=== PATIENT | female | born 1995 | race Caucasian/White ===

== ENCOUNTER 2016-09-24 21:28 | Inpatient (IN) | payer OTHER ==
--- NOTE | 2016-09-24 21:41 | HP ---
COWS - Scale Resting Pulse: 1= [place] 81-100 Sweatin=Flushed/Facial Moisture Restless Observation: 1= Difficult to Sit Still Pupil Size: 1= Pupils >than Normal Bone or Joint Aches: 2= Severe Diffuse Aches Runny Nose/ Eye Tearin= Runny Nose/Eyes GI Upset > 30mins: 2= Nausea/Diarrhea Tremor Observation: 2= Slight Tremor Visible Yawning Observation: 0= None Anxiety or Irritability: 2=Irritable/Anxious Goose Flesh Skin: 0=Smooth Skin COWS Score: 15 CIWA Score - CIWA Score Nausea/Vomitin Muscle Tremors: 3 Anxiety: 3 Agitation: 2 Paroxysmal Sweats: 3 Orientation: 0-Oriented Tacttile Disturbances: 2-Mild Itch/Numbness/Burn Auditory Disturbances: 2-Mild Harshness/Frighten Visual Disturbances: 2-Mild Sensitivity Headache: 1-Very Mild CIWA-Ar Total Score: 21 Admission ROS BHS - HPI Chief Complaint: DEPENDENT ON HEROIN, ETOH AND CRACK Allergies/Adverse Reactions: Allergies Allergy/AdvReac Type Severity Reaction Status Date / Time amoxicillin Allergy Unknown Verified 09/24/16 21:37 History of Present Illness: THE PT. IS REQUESTING ADMISSION TO THE DETOX UNIT AND CAME FOR H AND PE Exam Limitations: No Limitations - Ebola screening Have you traveled outside of the country in the last 21 days: No Have you had contact with anyone from an Ebola affected area: No Have you been sick,other than usual withdrawal symptoms: No Do you have a fever: No - Review of Systems Constitutional: See HPI, Malaise, Weakness EENT: reports: See HPI Respiratory: reports: See HPI Cardiac: reports: See HPI, Syncope GI: reports: See HPI, Diarrhea, Nausea, Vomiting, Abdominal cramping : reports: No Symptoms Reported, See HPI Musculoskeletal: reports: See HPI, Muscle Pain, Muscle Weakness Integumentary: reports: See HPI Neuro: reports: See HPI, Headache, Tremors, Weakness Endocrine: reports: See HPI Hematology: reports: See HPI Psychiatric: reports: Judgement Intact, Orientated x3, Anxious Patient History - Patient Medical History Hx Seizures: No Hx Human Immunodeficiency Virus (HIV): No Hx Hepatitis C: No Other Medical History: H/O: ANXIETY DISORDER - Patient Surgical History Past Surgical History: No - Reproductive History Patient is a Female of Child Bearing Age (11 -55 yrs old): Yes Last Menstrual Period: 07/18/16 LMP comment: H/O: IRREGULAR PERIODS+ Patient : No - Smoking Cessation Smoking history: Current every day smoker Have you smoked in the past 12 months: Yes Aproximately how many cigarettes per day: 20 Hx Chewing Tobacco Use: No Initiated information on smoking cessation: Yes 'Breaking Loose' booklet given: 09/24/16 - Substance & Tx. History Hx Alcohol Use: Yes Hx Substance Use: Yes Substance Use Type: Alcohol, Cocaine, Heroin Hx Substance Use Treatment: No - Substances Abused Heroin Route: Injection Frequency: Daily Amount used: 10B/D Age of first use: 15 Date of Last Use: 09/24/16 Alcohol Route: Oral Frequency: Daily Amount used: LIQUOR 1 P/D Age of first use: 11 Date of Last Use: 09/24/16 Crack Route: Smoking Frequency: Daily Amount used: $40-50/D Age of first use: 20 Date of Last Use: 09/24/16 Family Disease History - Family Disease History Family History: Denies Admission Physical Exam [facility] - Physical General Appearance: Yes: No Apparent Distress, Nourished, Appropriately Dressed , Tremorous, Sweating, Anxious HEENTM: Yes: Hearing grossly Normal, Normocephalic, Normal Voice, KATHERYN, Pharynx Normal Respiratory: Yes: Chest Non-Tender, Lungs Clear, Normal Breath Sounds, No Respiratory Distress, No Accessory Muscle Use Neck: Yes: No masses,lesions,Nodules, Supple, Trachea in good position Breast: Yes: Breast Exam Deferred Cardiology: Yes: Regular Rhythm, S1, S2, Tachycardia Abdominal: Yes: Normal Bowel Sounds, Non Tender, Flat, Soft Back: Yes: Normal Inspection Musculoskeletal: Yes: full range of Motion, Gait Steady, Pelvis Stable, Muscle Pain, Muscle weakness Extremities: Yes: Normal Capillary Refill, Normal Range of Motion, Non-Tender, Tremors Neurological: Yes: wind development director II-XII NML intact, Fully Oriented, Alert, Motor Strength 5/5, Normal Response, Depressed Affect Integumentary: Yes: Warm, Moist, [place] Lymphatic: Yes: Within Normal Limits - Addiitonal Findings: NEEDLE TRACKS ON UPPER LIMBS+ Cleared for Admission [facility] - Detox or Rehab [facility] Level of Care: Medically Managed Detox Regimen/Protocol: Methadone/Librium BHS Breath Alcohol Content Breath Alcohol Content: 0.017 Vital Signs - Vital Signs Vital Signs Refused: No Temperature: 96.7 F Temperature Source: Oral Pulse Rate: 88 Respiratory Rate: 16 Blood Pressure: 104/73 BP Location: Left Arm Blood Pressure Position: Sitting - Height Height: 5 ft - Weight Weight: 115 lb Weight Measurement Method: Standing Scale Body Mass Index (BMI): 22.4 Urine Pregancy Test - Test Device Lot Number: [id number] Expiration Date: 04/02/18 - Control Horizontal Line in Upper Control Window?: Yes - Result Urine Test Results: Negative- NO Line Present Urine Drug Screen - Test Device Lot Number: [id number] Expiration Date: 04/03/18 - Control Is Test Valid: Yes - Results Drug Screen Negative: No Urine Drug Screen Results: PEPE-Cocaine, OPI-Opiates, OXY-Oxycodone
[2016-09-24 21:50] VITALS: BMI 22.4
[2016-09-24] MEDS ORDERED: guaiFENesin/D-METHORPHAN HB 10 ML UNIT-DOSE CUPS PO PRN (21:52)
[2016-09-24] MEDS ORDERED: chlordiazePOXIDE HCL 25 MG CAPSULE PO PRN (21:52)
[2016-09-24] MEDS ORDERED: P-EPHED 60MG/TRIPROLIDI 2.5MG TABLET PO PRN (21:52)
[2016-09-24] MEDS ORDERED: MENTHOL/PHENOL 1 EACH UD MM PRN (21:52)
[2016-09-24] MEDS ORDERED: LOPERAMIDE HCL 2 MG CAPSULE PO PRN (21:52)
[2016-09-24] MEDS ORDERED: ACETAMINOPHEN 325 MG TABLET (FP) PO PRN (21:52)
[2016-09-24] MEDS ORDERED: NICOTINE 10 MG CARTRIDGE (INHALER) IH PRN (21:52)
[2016-09-24] MEDS ORDERED: chlordiazePOXIDE HCL 25 MG CAPSULE PO ONE (21:52)
[2016-09-24] MEDS ORDERED: MAGNESIUM HYDROX 2400MG/30ML ORAL SUSPENSION 30 ML CUP PO PRN (21:52)
[2016-09-24] MEDS ORDERED: NICOTINE POLACRILEX 4 MG GUM BC PRN (21:52)
[2016-09-24] MEDS ORDERED: MAG HYDROX/AL HYDROX/SIMETH 30 ML UNIT-DOSE CUP PO PRN (21:52)
[2016-09-24] MEDS ORDERED: METHADONE HCL 10 MG TABLET (FOR DETOX USE ONLY) PO ONE ×2 (21:52→23:00)
[2016-09-24] MEDS ORDERED: MAGNESIUM CITRATE 300 ML BOTTLE PO PRN (21:52)
[2016-09-24] MEDS ORDERED: IBUPROFEN 400 MG TABLET (FP) PO PRN (21:52)
[2016-09-24] MEDS: chlordiazePOXIDE HCL 25 MG CAPSULE PO SCH (23:13)
[2016-09-25] MEDS: chlordiazePOXIDE HCL 25 MG CAPSULE PO SCH ×4 (05:44→22:10)
[2016-09-25] MEDS ORDERED: METHADONE HCL 10 MG TABLET (FOR DETOX USE ONLY) PO SCH (10:00)
[2016-09-25 10:13] LABS: MCH 25.9 pg (25.7-33.7); MCHC 32.8 g/dl (32.0-36.0); MEAN CELL VOLUME 78.9 fl (80-96); MEAN PLT VOLUME 9.7 fl (7.5-11.1); PLATELET COUNT 210 K/MM3 (134-434); WHITE BLOOD COUNT 6.6 K/mm3 (4.0-10.0)
--- NOTE | 2016-09-25 10:30 | CONSULT ---
[facility] Psychiatric Consult - Data Date of interview: 09/25/16 Admission source: [facility] Identifying data: First admission to [facility] for this 21 y/o female seeking detox treatment on for alcohol,opioid and cocaine (crack) dependence.Patient is single without children,domiciled (lives with her parents ) and currently employed. Substance Abuse History: - Smoking Cessation. Smoking history: Current every day smoker. Have you smoked in the past 12 months: Yes. Aproximately how many cigarettes per day: 20. Hx Chewing Tobacco Use: No. Initiated information on smoking cessation: Yes. 'Breaking Loose' booklet given: 09/24/16. - Substance & Tx. History. Hx Alcohol Use: Yes. Hx Substance Use: Yes. Substance Use Type : Alcohol, Cocaine, Heroin. Hx Substance Use Treatment: No. - Substances Abused. Heroin. Route: Injection. Frequency: Daily. Amount used: 10B/D. Age of first use: 15. Date of Last Use: 09/24/16. Alcohol. Route: Oral. Frequency: Daily. Amount used: LIQUOR 1 P/D. Age of first use: 11. Date of Last Use: 09/24/16. Crack. Route: Smoking. Frequency: Daily. Amount used : $40-50/D. Age of first use: 20. Date of Last Use: 09/24/16. Confirmed by patient. Medical History: No medical problems reported. Psychiatric History: Patient denies. Physical/Sexual Abuse/Trauma History: Patient denies. Additional Comment: Urine Drug Screen Results: PEPE-Cocaine, OPI-Opiates, OXY- Oxycodone.Noted. Mental Status Exam - Mental Status Exam Alert and Oriented to: Time, Place, Person Cognitive Function: Good Patient Appearance: Well Groomed Mood: Hopeful, Euthymic Affect: Appropriate, Normal Range Patient Behavior: Fatigued, Appropriate, Cooperative Speech Pattern: Clear Voice Loudness: Normal Thought Process: Intact Thought Disorder: Not Present Hallucinations: Denies Suicidal Ideation: Denies Homicidal Ideation: Denies Insight/Judgement: Poor Sleep: Well Appetite: Good Muscle strength/Tone: Normal Gait/Station: Normal Psychiatric Findings - Problem List ([place] 1, 2,3) (1) Alcohol dependence Current Visit: Yes Status: Acute (2) Opioid dependence Current Visit: Yes Status: Acute (3) Cocaine dependence Current Visit: Yes Status: Acute (4) Nicotine dependence Current Visit: Yes Status: Acute - Initial Treatment Plan Initial Treatment Plan: Psychoeducation.Detoxification.Observation.
[2016-09-25] MEDS: PRENATAL VITAMINS W/ FOLIC ACID TABLET (FP) PO SCH (10:36)
--- NOTE | 2016-09-25 10:36 | PN ---
[facility] CIWA - CIWA Score Nausea/Vomitin-No Nausea/No Vomiting Muscle Tremors: 4-Moderate,w/Arms Extend Anxiety: 4-Mod. Anxious/Guarded Agitation: 4-Moderately Restless Paroxysmal Sweats: 3 Orientation: 0-Oriented Tacttile Disturbances: 0-None Auditory Disturbances: 0-None Visual Disturbances: 0-None Headache: 1-Very Mild CIWA-Ar Total Score: 16 BHS COWS - Scale Resting Pulse: 0= [place] 80 or Below Sweatin=Flushed/Facial Moisture Restless Observation: 1= Difficult to Sit Still Pupil Size: 0= Normal to Room Light Bone or Joint Aches: 2= Severe Diffuse Aches Runny Nose/ Eye Tearin= Runny Nose/Eyes GI Upset > 30mins: 2= Nausea/Diarrhea Tremor Observation of Outstretched Hands: 2= Slight Tremor Visible Yawning Observation: 2= >3x During Session Anxiety or Irritability: 2=Irritable/Anxious Goose Flesh Skin: 0=Smooth Skin COWS Score: 15 S Progress Note (SOAP) Subjective: sweats shakes interrupted sleep agitation anxiety upset stomach Objective: 09/25/16 10:36 Vital Signs Temperature 97.5 F L 09/25/16 10:14 Pulse Rate 71 09/25/16 10:14 Respiratory Rate 16 09/25/16 10:14 Blood Pressure 116/58 09/25/16 10:14 O2 Sat by Pulse Oximetry (%) Laboratory Tests 09/25/16 06:30 WBC 6.6 RBC 4.33 Hgb 11.2 Hct 34.1 MCV 78.9 L MCHC 32.8 RDW 16.0 H Plt Count 210 MPV 9.7 labs pending awake/alert ambulating no acute distress Assessment: 09/25/16 10:37 withdrawals sx Plan: continue detox increase fluids labs pending mom/mylanta prn
[2016-09-25] MEDS: NICOTINE 21 MG/24 HOURS TOPICAL PATCH TD SCH (10:37)
[2016-09-25 11:00] LABS: ALBUMIN 3.5 g/dl (3.4-5.0); ALK PHOS 74 U/L (45-117); ANION GAP 10 (8-16); BILIRUBIN,TOTAL 0.1 mg/dL (0.2-1.0); CALCIUM 8.9 mg/dL (8.5-10.1); CO2 27 mmol/L (21-32); CREATININE 0.7 mg/dL (0.55-1.02); GLUCOSE,RANDOM 98 mg/dL (74-106); SGOT/AST 23 U/L (15-37); SGPT/ALT 24 U/L (12-78); TOT PROT 6.6 g/dl (6.4-8.2)
--- NOTE | 2016-09-25 11:04 | EKG ---
Test Reason : Blood Pressure : / mmHG Vent. Rate : 076 BPM Atrial Rate : 076 BPM P-R Int : 168 ms QRS Dur : 088 ms QT Int : 400 ms P-R-T Axes : 050 069 048 degrees QTc Int : 450 ms NORMAL SINUS RHYTHM NORMAL ECG NO PREVIOUS ECGS AVAILABLE Confirmed by REMBERTO MANRIQUE MD ([id number]) on 09/25/2016 11:03:55 AM Referred By: Confirmed By:REMBERTO MANRIQUE MD
[2016-09-25] MEDS: diphenhydrAMINE HCL 50 MG CAPSULE PO PRN (22:09)
[2016-09-25] MEDS: THIAMINE HCL 100 MG TABLET (FP) PO SCH (22:10)
[2016-09-26] MEDS: chlordiazePOXIDE HCL 25 MG CAPSULE PO SCH ×3 (05:13→17:53)
[2016-09-26] MEDS: METHADONE HCL 5 MG TABLET (FOR DETOX USE ONLY) PO SCH (10:36)
[2016-09-26] MEDS: PRENATAL VITAMINS W/ FOLIC ACID TABLET (FP) PO SCH (10:36)
[2016-09-26] MEDS: NICOTINE 21 MG/24 HOURS TOPICAL PATCH TD SCH (10:38)
--- NOTE | 2016-09-26 11:22 | PN ---
S CIWA - CIWA Score Nausea/Vomitin Muscle Tremors: 3 Anxiety: 3 Agitation: 2 Paroxysmal Sweats: 3 Orientation: 0-Oriented Tacttile Disturbances: 1-Very Mild Itch/Numbness Auditory Disturbances: 0-None Visual Disturbances: 0-None Headache: 0-None Present CIWA-Ar Total Score: 14 S COWS - Scale Resting Pulse: 0= [place] 80 or Below Sweatin=Flushed/Facial Moisture Restless Observation: 1= Difficult to Sit Still Pupil Size: 1= Pupils >than Normal Bone or Joint Aches: 1= Mild Discomfort Runny Nose/ Eye Tearin= Nasal Congestion GI Upset > 30mins: 1= Stomach Cramp Tremor Observation of Outstretched Hands: 1= Tremor [place], Not Seen Yawning Observation: 0= None Anxiety or Irritability: 2=Irritable/Anxious Goose Flesh Skin: 0=Smooth Skin COWS Score: 10 S Progress Note (SOAP) Subjective: sweats, shakes , upset stomach Objective: 09/26/16 11:24 Vital Signs Temperature 97.9 F 09/26/16 09:37 Pulse Rate 70 09/26/16 09:37 Respiratory Rate 18 09/26/16 09:37 Blood Pressure 107/63 09/26/16 09:37 O2 Sat by Pulse Oximetry (%) Laboratory Tests 09/25/16 09/25/16 09/25/16 06:30 06:30 06:30 WBC 6.6 RBC 4.33 Hgb 11.2 Hct 34.1 MCV 78.9 L MCHC 32.8 RDW 16.0 H Plt Count 210 MPV 9.7 Sodium 140 Potassium 3.8 Chloride 103 Carbon Dioxide 27 Anion Gap 10 BUN 10 Creatinine 0.7 Creat Clearance w eGFR > 60 Random Glucose 98 Calcium 8.9 Total Bilirubin 0.1 L AST 23 ALT 24 Alkaline Phosphatase 74 Total Protein 6.6 Albumin 3.5 RPR Titer Nonreactive pt aox3 in nad ambulating Assessment: 09/26/16 11:25 withdrawl sx's Plan: cont. detox increase fluids mylanta prn
[2016-09-26] MEDS: hydrOXYzine PAMOATE 25 MG CAPSULE (FP) PO PRN (14:32)
[2016-09-26] MEDS: chlordiazePOXIDE 5 MG CAPSULE PO SCH (22:34)
[2016-09-26] MEDS: diphenhydrAMINE HCL 50 MG CAPSULE PO PRN (22:34)
[2016-09-26] MEDS: THIAMINE HCL 100 MG TABLET (FP) PO SCH ×2 (22:34→22:43)
[2016-09-27] MEDS: chlordiazePOXIDE 5 MG CAPSULE PO SCH ×3 (06:12→17:33)
[2016-09-27] MEDS: PRENATAL VITAMINS W/ FOLIC ACID TABLET (FP) PO SCH (10:09)
[2016-09-27] MEDS: NICOTINE 21 MG/24 HOURS TOPICAL PATCH TD SCH (10:10)
[2016-09-27] MEDS: METHADONE HCL 5 MG TABLET (FOR DETOX USE ONLY) PO SCH (10:12)
--- NOTE | 2016-09-27 10:47 | PN ---
BHS Progress Note (SOAP) Subjective: shakes sweats interrupted sleep body aches Objective: 09/27/16 10:46 Vital Signs Temperature 98.8 F 09/27/16 09:39 Pulse Rate 77 09/27/16 09:39 Respiratory Rate 18 09/27/16 09:39 Blood Pressure 125/64 09/27/16 09:39 O2 Sat by Pulse Oximetry (%) awake/alert ambulating no acute distress Assessment: 09/27/16 10:50 withdrawal sx Plan: continue detox increase fluids
[2016-09-27 14:27] LABS: URINE APPEARANCE SLCLOUDY; URINE BILIRUBIN NEGATIVE (NEGATIVE); URINE BLOOD NEGATIVE (NEGATIVE); URINE COLOR LTYELLOW; URINE GLUCOSE (UA) NEGATIVE (NEGATIVE); URINE KETONE NEGATIVE (NEGATIVE); URINE LEUK ESTERASE NEGATIVE (NEGATIVE); URINE NITRITE NEGATIVE (NEGATIVE); URINE PROTEIN NEGATIVE (NEGATIVE); URINE UROBILINOGEN NEGATIVE E.U./dl (0.2-1.0)
[2016-09-27] MEDS: chlordiazePOXIDE HCL 10 MG CAPSULE PO SCH (22:11)
[2016-09-27] MEDS: THIAMINE HCL 100 MG TABLET (FP) PO SCH (22:11)
[2016-09-27] MEDS: diphenhydrAMINE HCL 50 MG CAPSULE PO PRN (22:12)
[2016-09-28] MEDS: chlordiazePOXIDE HCL 10 MG CAPSULE PO SCH ×3 (05:29→17:27)
[2016-09-28] MEDS ORDERED: METHADONE HCL 10 MG TABLET (FOR DETOX USE ONLY) PO SCH (10:00)
[2016-09-28] MEDS: PRENATAL VITAMINS W/ FOLIC ACID TABLET (FP) PO SCH (10:16)
[2016-09-28] MEDS: NICOTINE 21 MG/24 HOURS TOPICAL PATCH TD SCH (10:17)
--- NOTE | 2016-09-28 12:35 | PN ---
BHS Progress Note (SOAP) Subjective: cold sweats, bodyaches Objective: 09/28/16 12:34 Vital Signs Temperature 97.5 F L 09/28/16 10:02 Pulse Rate 74 09/28/16 10:02 Respiratory Rate 16 09/28/16 10:02 Blood Pressure 120/76 09/28/16 10:02 O2 Sat by Pulse Oximetry (%) Laboratory Tests 09/25/16 09/25/16 09/25/16 06:30 06:30 06:30 WBC 6.6 RBC 4.33 Hgb 11.2 Hct 34.1 MCV 78.9 L MCHC 32.8 RDW 16.0 H Plt Count 210 MPV 9.7 Sodium 140 Potassium 3.8 Chloride 103 Carbon Dioxide 27 Anion Gap 10 BUN 10 Creatinine 0.7 Creat Clearance w eGFR > 60 Random Glucose 98 Calcium 8.9 Total Bilirubin 0.1 L AST 23 ALT 24 Alkaline Phosphatase 74 Total Protein 6.6 Albumin 3.5 Urine Color Urine Appearance Urine pH Ur Specific [place] Urine Protein Urine Glucose (UA) Urine Ketones Urine Blood Urine Nitrite Urine Bilirubin Urine Urobilinogen Ur Leukocyte Esterase RPR Titer Nonreactive 09/27/16 11:15 WBC RBC Hgb Hct MCV MCHC RDW Plt Count MPV Sodium Potassium Chloride Carbon Dioxide Anion Gap BUN Creatinine Creat Clearance w eGFR Random Glucose Calcium Total Bilirubin AST ALT Alkaline Phosphatase Total Protein Albumin Urine Color Ltyellow Urine Appearance Slcloudy Urine pH 9.0 H Ur Specific [place] 1.008 Urine Protein Negative Urine Glucose (UA) Negative Urine Ketones Negative Urine Blood Negative Urine Nitrite Negative Urine Bilirubin Negative Urine Urobilinogen Negative Ur Leukocyte Esterase Negative RPR Titer pt aOX3 IN NAD AMBULATING Assessment: 09/28/16 12:34 WITHDRAWL SX;S Plan: CONT. DETOX INCREASE FLUIDS D/C IN AM
[2016-09-28] MEDS: THIAMINE HCL 100 MG TABLET (FP) PO SCH (22:17)
[2016-09-28] MEDS: hydrOXYzine PAMOATE 25 MG CAPSULE (FP) PO PRN (22:17)
[2016-09-29] MEDS ORDERED: METHADONE HCL 5 MG TABLET (FOR DETOX USE ONLY) PO SCH (06:00)
--- NOTE | 2016-09-29 09:33 | DS ---
[facility] Detox Discharge Summary Admission Date: 09/24/16 Discharge Date: 09/29/16 - History Present History: Alcohol Dependence, Cocaine Dependence, Opioid Dependence - Physical Exam Results Vital Signs: Vital Signs Temperature 98.2 F 09/29/16 07:13 Pulse Rate 67 09/29/16 07:13 Respiratory Rate 16 09/29/16 07:13 Blood Pressure 101/52 09/29/16 07:13 O2 Sat by Pulse Oximetry (%) - Treatment Hospital Course: Detox Protocol Followed, Detoxed Safely, Responded well, Discharged Condition Good, Rehab Referral Accepted - Medication Discharge Medications: Ambulatory Orders NK [No Known Home Medication] 09/24/16 - Diagnosis (1) Alcohol dependence Current Visit: Yes Status: Chronic Qualifiers: Substance use status: uncomplicated Qualified Code(s): F10.20 - Alcohol dependence, uncomplicated (2) Cocaine dependence Current Visit: Yes Status: Chronic Qualifiers: Substance use status: uncomplicated Qualified Code(s): F14.20 - Cocaine dependence, uncomplicated (3) Nicotine dependence Current Visit: Yes Status: Chronic Qualifiers: Nicotine product type: cigarettes Substance use status: uncomplicated Qualified Code(s): F17.210 - Nicotine dependence, cigarettes, uncomplicated (4) Opioid dependence Current Visit: Yes Status: Chronic Qualifiers: Substance use status: uncomplicated Qualified Code(s): F11.20 - Opioid dependence, uncomplicated - AMA Did Patient Leave Against Medical Advice: No
[2016-09-29 09:56] VITALS: BP 114/66; PULSE 84; TEMP 97.9
== END 2016-09-29 09:44 | disposition home or self-care (01) | DRG 745 ==
LOC: YASAS 21:28 → Y6N 21:49
PROVIDERS: ADMIT Internal Medicine; ATTEND Internal Medicine
PROC: HZ2ZZZZ Detoxification Services for Substance Abuse Treatment (ICD-10-PCS; principal; 2016-09-24)
DX: F11.23 Opioid dependence with withdrawal (principal); F10.230 Alcohol dependence with withdrawal, uncomplicated; F14.20 Cocaine dependence, uncomplicated; F17.210 Nicotine dependence, cigarettes, uncomplicated; R00.0 Tachycardia, unspecified
CPT/HCPCS: 36415; 80053; 81003; 85027; 86593; 93005; 93010

== ENCOUNTER 2018-02-05 11:28 | Inpatient (IN) | payer SELFPAY ==
[2018-02-05 11:54] VITALS: BMI 22.1
--- NOTE | 2018-02-05 13:54 | HP ---
COWS - Scale Resting Pulse: 0= [place] 80 or Below Sweatin= Chills/Flushing Restless Observation: 3= Extraneous Movement Pupil Size: 2= Moderately Dilated Bone or Joint Aches: 4=Acute Joint/Muscle Pain Runny Nose/ Eye Tearin= Nasal Congestion GI Upset > 30mins: 1= Stomach Cramp Tremor Observation: 1= Tremor [place], Not Seen Yawning Observation: 2= >3x During Session Anxiety or Irritability: 2=Irritable/Anxious Goose Flesh Skin: 0=Smooth Skin COWS Score: 17 Admission [facility] Chief Complaint: HEROIN WITHDRAWAL SX Allergies/Adverse Reactions: Allergies Allergy/AdvReac Type Severity Reaction Status Date / Time amoxicillin Allergy Unknown Verified 02/05/18 11:59 History of Present Illness: 22 Y/O FEMALE WITH A HX OF HEROIN DEPENDENCE SEEKING DETOX [place]. REPORTS LAST DETOX HERE IN 2017. DENIES USE OF ANY OTHER SUBSTANCE. Exam Limitations: No Limitations - Ebola screening Have you traveled outside of the country in the last 21 days: No Have you had contact with anyone from an Ebola affected area: No Have you been sick,other than usual withdrawal symptoms: No Do you have a fever: No - Review of Systems Constitutional: No Symptoms Reported, Chills, Loss of Appetite, Night Sweats, Changes in sleep EENT: reports: Tearing, Nose Congestion Respiratory: reports: No Symptoms reported Cardiac: reports: No Symptoms Reported GI: reports: Diarrhea, Nausea, Poor Appetite, Vomiting : reports: Dysuria Musculoskeletal: reports: Back Pain, Joint Pain, Muscle Pain Integumentary: reports: Bruising Neuro: reports: Numbness, Tremors, Unsteady Gait Endocrine: reports: No Symptoms Reported Hematology: reports: No Symptoms Reported Psychiatric: reports: Judgement Intact, Orientated x3, Anxious Other Systems: Reviewed and Negative Patient History - Patient Medical History Hx Anemia: No Hx Asthma: No Hx Chronic Obstructive Pulmonary Disease (COPD): No Hx Cardiac Disorders: No Hx Hypertension: No Hx Hypercholesterolemia: No Hx Seizures: No Hx Diabetes: No Hx Gastrointestinal Disorders: No Hx Liver Disease: No Hx Genitourinary Disorders: Yes (UTI IN THE PAST) Hx Sexually Transmitted Disorders: No (DENIES) Hx Renal Disease (ESRD): No Hx Thyroid Disease: No Hx Human Immunodeficiency Virus (HIV): No (NEGATIVE HX) Hx Hepatitis C: No Hx Depression: Yes (HX INSOMNIA) Hx Suicide Attempt: No Hx Schizophrenia: No - Patient Surgical History Past Surgical History: No Hx Neurologic Surgery: No Hx Cataract Extraction: No Hx Cardiac Surgery: No Hx Lung Surgery: No Hx Breast Surgery: No Hx Breast Biopsy: No Hx Abdominal Surgery: No Hx Appendectomy: No Hx Cholecystectomy: No Hx Genitourinary Surgery: No Hx Section: No Hx Orthopedic Surgery: No Hx Hysterectomy: No Anesthesia Reaction: No - PPD History Previous Implant?: Yes Documented Results: Negative w/o proof Implanted On Prior [facility] Admission?: Yes Date: 09/26/16 PPD to be Administered?: Yes - Reproductive History Patient is a Female of Child Bearing Age (11 -55 yrs old): Yes Last Menstrual Period: 11/01/17 LMP comment: SOMETIMES IRREGULAR Patient : No - Smoking Cessation Smoking history: Current every day smoker Have you smoked in the past 12 months: Yes Aproximately how many cigarettes per day: 20 Hx Chewing Tobacco Use: No Initiated information on smoking cessation: Yes 'Breaking Loose' booklet given: 02/05/18 - Substance & Tx. History Hx Alcohol Use: No Hx Substance Use: Yes (HEROIN) Substance Use Type: Heroin Hx Substance Use Treatment: Yes (LAST TX AT [facility]) - Substances Abused Heroin Route: Injection Frequency: Daily Amount used: 20-30 bags Age of first use: 17 Date of Last Use: 02/05/18 Family Disease History - Family Disease History Family Disease History: Other: Grandparent (ADDICTION), Father (HEROIN ADDICTION ), Mother (HEROIN ADDICTION) Other Family History: AUNT WITH ADDICTION Admission Physical Exam BHS - Vital Signs Vital Signs: Vital Signs - 24 hr 02/05/18 11:49 Temperature 98.9 F Pulse Rate 69 Respiratory 16 Rate Blood Pressure 114/60 - Physical General Appearance: Yes: Moderate Distress, Irritable, Anxious HEENTM: Yes: EOMI, Normocephalic, KATHERYN, Pharynx Normal Respiratory: Yes: Chest Non-Tender, Lungs Clear, Normal Breath Sounds, No Respiratory Distress Neck: Yes: No masses,lesions,Nodules, Supple, Trachea in good position Breast: Yes: Breast Exam Deferred Cardiology: Yes: Regular Rhythm, Regular Rate, S1, S2 Abdominal: Yes: Normal Bowel Sounds, Non Tender, Flat, Soft Genitourinary: Yes: Other (N/C) Back: Yes: Within Normal Limits Musculoskeletal: Yes: full range of Motion, Gait Steady Extremities: Yes: Normal Range of Motion, Non-Tender Neurological: Yes: coal wheeler II-XII NML intact, Fully Oriented, Alert, Motor Strength 5/5 Integumentary: Yes: Dry, Warm Lymphatic: Yes: Within Normal Limits - Diagnostic (1) Nicotine dependence Current Visit: Yes Status: Acute Qualifiers: Nicotine product type: cigarettes Substance use status: in withdrawal Qualified Code(s): F17.213 - Nicotine dependence, cigarettes, with withdrawal (2) Opioid dependence with withdrawal Current Visit: Yes Status: Acute Cleared for Admission [facility] - Detox or Rehab [facility] Level of Care: Medically Managed Detox Regimen/Protocol: Methadone [facility] Breath Alcohol Content Breath Alcohol Content: 0 Urine Pregancy Test - Result Urine Test Results: Negative- NO Line Present Urine Drug Screen - Results Drug Screen Negative: No Urine Drug Screen Results: OPI-Opiates
[2018-02-05] MEDS ORDERED: MENTHOL/PHENOL 1 EACH UD MM PRN (14:18)
[2018-02-05] MEDS ORDERED: MAGNESIUM HYDROX 2400MG/30ML ORAL SUSPENSION 30 ML CUP PO PRN (14:18)
[2018-02-05] MEDS ORDERED: LOPERAMIDE HCL 2 MG CAPSULE PO PRN (14:18)
[2018-02-05] MEDS ORDERED: MAG HYDROX/AL HYDROX/SIMETH 30 ML UNIT-DOSE CUP PO PRN (14:18)
[2018-02-05] MEDS ORDERED: P-EPHED 60MG/TRIPROLIDI 2.5MG TABLET PO PRN (14:18)
[2018-02-05] MEDS ORDERED: MAGNESIUM CITRATE 300 ML BOTTLE PO PRN (14:18)
[2018-02-05] MEDS ORDERED: ACETAMINOPHEN 325 MG TABLET (FP) PO PRN (14:18)
[2018-02-05] MEDS ORDERED: guaiFENesin/D-METHORPHAN HB 10 ML UNIT-DOSE CUPS PO PRN (14:18)
[2018-02-05] MEDS ORDERED: METHADONE HCL 10 MG TABLET (FOR DETOX USE ONLY) PO ONE ×2 (15:00→23:00)
[2018-02-05] MEDS: diazePAM 5 MG TABLET PO PRN ×2 (15:57→20:43)
[2018-02-05] MEDS: NICOTINE 21 MG/24 HOURS TOPICAL PATCH TD SCH (16:07)
[2018-02-05] MEDS: THIAMINE HCL 100 MG TABLET (FP) PO SCH (22:29)
[2018-02-05] MEDS: IBUPROFEN 400 MG TABLET (FP) PO PRN (22:31)
[2018-02-05] MEDS: MELATONIN 5 MG TABLETS PO PRN (22:33)
[2018-02-06] MEDS ORDERED: METHADONE HCL 10 MG TABLET (FOR DETOX USE ONLY) PO ONE (10:00)
[2018-02-06] MEDS: PRENATAL VITAMINS W/ FOLIC ACID TABLET (FP) PO SCH (10:10)
[2018-02-06 10:23] LABS: HEMATOCRIT 37.5 % (32.4-45.2); HEMOGLOBIN 12.5 GM/dL (10.7-15.3); MCH 27.4 pg (25.7-33.7); MCHC 33.3 g/dl (32.0-36.0); MEAN CELL VOLUME 82.3 fl (80-96); MEAN PLT VOLUME 9.9 fl (7.5-11.1); PLATELET COUNT 263 K/MM3 (134-434); RBC 4.56 M/mm3 (3.60-5.2); RDW 14.2 % (11.6-15.6); WHITE BLOOD COUNT 6.3 K/mm3 (4.0-10.0)
--- NOTE | 2018-02-06 10:27 | CONSULT ---
[facility] Psychiatric Consult - Data Date of interview: 02/06/18 Admission source: [facility] Identifying data: This is 22 years old female, single, homeless, unemployed, with no PA support, with no psychiatric hospitalization history, [facility] history of Heroin, Nicotine dependence, reports withdrawal symptoms and seeking for detox. Substance Abuse History: Smoking history: Current every day smoker. Have you smoked in the past 12 months: Yes. Aproximately how many cigarettes per day: 20. Hx Chewing Tobacco Use: No. Initiated information on smoking cessation: Yes. 'Breaking Loose' booklet given: 02/05/18. - Substance & Tx. History. Hx Alcohol Use: No. Hx Substance Use: Yes (HEROIN). Substance Use Type: Heroin. Hx Substance Use Treatment: Yes (LAST TX AT [facility]). - Substances Abused. Heroin. Route: Injection. Frequency: Daily. Amount used: 20-30 bags. Age of first use: 17. Date of Last Use: 02/05/18 Medical History: Denies significant medical problem Psychiatric History: Denies past psychiatric history, as per computer history of depression and anxiety. Physical/Sexual Abuse/Trauma History: Denies Additional Comment: Reports insomnia and asking for medications interventrion. Mental Status Exam - Mental Status Exam Alert and Oriented to: Person Cognitive Function: Fair Patient Appearance: Unkempt Mood: Anxious Affect: Flat Patient Behavior: Cooperative Speech Pattern: Appropriate Voice Loudness: Mildly Soft/Quiet Thought Process: Goal Oriented Thought Disorder: Being Controlled Hallucinations: Denies Suicidal Ideation: Denies Homicidal Ideation: Denies Insight/Judgement: Fair Sleep: Difficulty falling asleep Appetite: Fair Muscle strength/Tone: Normal Gait/Station: Normal Additional Comments: Seroquel 50mg po [facility] Psychiatric Findings - Problem List ([place] 1, 2,3) (1) Opioid-induced sleep disorder, insomnia type, with onset during discontinuation/withdrawal Current Visit: Yes Status: Acute (2) Anxiety associated with depression Current Visit: Yes Status: Acute (3) Nicotine dependence Current Visit: Yes Status: Acute Qualifiers: Nicotine product type: cigarettes Substance use status: in withdrawal Qualified Code(s): F17.213 - Nicotine dependence, cigarettes, with withdrawal (4) Opioid dependence with withdrawal Current Visit: Yes Status: Acute (5) Alcohol dependence Current Visit: No Status: Chronic Qualifiers: Substance use status: uncomplicated Qualified Code(s): F10.20 - Alcohol dependence, uncomplicated (6) Cocaine dependence Current Visit: No Status: Chronic Qualifiers: Substance use status: uncomplicated Qualified Code(s): F14.20 - Cocaine dependence, uncomplicated (7) Opioid dependence Current Visit: No Status: Chronic Qualifiers: Substance use status: uncomplicated Qualified Code(s): F11.20 - Opioid dependence, uncomplicated - Initial Treatment Plan Initial Treatment Plan: Seroquel 50mg [facility]
[2018-02-06] MEDS: NICOTINE 21 MG/24 HOURS TOPICAL PATCH TD SCH (10:33)
--- NOTE | 2018-02-06 10:43 | PN ---
[facility] COWS - Scale Resting Pulse: 0= CO 80 or Below Sweatin= Chills/Flushing Restless Observation: 1= Difficult to Sit Still Pupil Size: 1= Pupils >than Normal Bone or Joint Aches: 2= Severe Diffuse Aches Runny Nose/ Eye Tearin= Runny Nose/Eyes GI Upset > 30mins: 2= Nausea/Diarrhea Tremor Observation of Outstretched Hands: 2= Slight Tremor Visible Yawning Observation: 2= >3x During Session Anxiety or Irritability: 2=Irritable/Anxious Goose Flesh Skin: 0=Smooth Skin COWS Score: 15 BHS Progress Note (SOAP) Subjective: joint pain body ache sweat tremor anxiety restlessness Objective: 02/06/18 10:43 Vital Signs Temperature 95.7 F L 02/06/18 06:29 Pulse Rate 67 02/06/18 06:29 Respiratory Rate 18 02/06/18 06:29 Blood Pressure 100/36 02/06/18 06:29 O2 Sat by Pulse Oximetry (%) Laboratory Last Values WBC 6.3 K/mm3 (4.0-10.0) 02/06/18 06:00 RBC 4.56 M/mm3 (3.60-5.2) 02/06/18 06:00 Hgb 12.5 GM/dL (10.7-15.3) D 02/06/18 06:00 Hct 37.5 % (32.4-45.2) 02/06/18 06:00 MCV 82.3 fl (80-96) 02/06/18 06:00 MCH 27.4 pg (25.7-33.7) 02/06/18 06:00 MCHC 33.3 g/dl (32.0-36.0) 02/06/18 06:00 RDW 14.2 % (11.6-15.6) D 02/06/18 06:00 Plt Count 263 K/MM3 (134-434) D 02/06/18 06:00 MPV 9.9 fl (7.5-11.1) 02/06/18 06:00 lab noted 02/06/18 10:44 ua pending Assessment: 02/06/18 10:43 withdrawal sx Plan: continue detox
[2018-02-06 10:55] LABS: ALBUMIN 4.5 g/dl (3.4-5.0); ANION GAP 8 (8-16); BILIRUBIN,TOTAL 0.2 mg/dL (0.2-1.0); BLOOD UREA NITROGEN 13 mg/dL (7-18); CALCIUM 9.2 mg/dL (8.5-10.1); CHLORIDE 102 mmol/L (98-107); CO2 29 mmol/L (21-32); GLUCOSE,RANDOM 94 mg/dL (74-106); POTASSIUM 4.1 mmol/L (3.5-5.1); SGOT/AST 15 U/L (15-37); SGPT/ALT 25 U/L (12-78); SODIUM 139 mmol/L (136-145)
[2018-02-06 10:56] LABS: ALK PHOS 71 U/L (45-117)
--- NOTE | 2018-02-06 11:55 | EKG ---
Test Reason : Blood Pressure : / mmHG Vent. Rate : 067 BPM Atrial Rate : 067 BPM P-R Int : 160 ms QRS Dur : 086 ms QT Int : 414 ms P-R-T Axes : 037 066 050 degrees QTc Int : 437 ms NORMAL SINUS RHYTHM NORMAL ECG WHEN COMPARED WITH ECG OF 05-FEB-2018 15:36, SINUS RHYTHM HAS REPLACED ECTOPIC ATRIAL RHYTHM QRS AXIS SHIFTED LEFT Confirmed by STEPHANIE JAVED, OZIEL ([id number]) on 02/06/2018 11:54:34 AM Referred By: Confirmed By:OZIEL BROWN MD
[2018-02-06] MEDS: diazePAM 5 MG TABLET PO PRN ×3 (12:17→22:40)
[2018-02-06] MEDS: BACLOFEN 10 MG TABLET (FP) PO SCH ×2 (13:31→22:40)
--- NOTE | 2018-02-06 18:16 | DS ---
[facility] Detox Discharge Summary Admission Date: 02/05/18 - Physical Exam Results Vital Signs: Vital Signs Temperature 98.2 F 02/06/18 17:55 Pulse Rate 84 02/06/18 17:55 Respiratory Rate 17 02/06/18 17:55 Blood Pressure 109/62 02/06/18 17:55 O2 Sat by Pulse Oximetry (%) - Medication Discharge Medications: Ambulatory Orders Quetiapine Fumarate [Seroquel -] 50 mg PO HS #30 tablet 02/06/18 - AMA Did Patient Leave Against Medical Advice: Yes (Notified by RN that patient requested to sign out AMA. )
--- NOTE | 2018-02-06 18:18 | PN ---
[facility] Progress Note Note: Notified by RN patient requested to sign out AMA stating she does not agree with detox regimen. Patient refused to wait to speak to EXERCISE SPECIALIST to discuss AMA risk factors and risk for relapse.
[2018-02-06] MEDS: THIAMINE HCL 100 MG TABLET (FP) PO SCH (22:39)
[2018-02-06] MEDS: QUEtiapine FUMARATE 50 MG TABLET PO SCH (22:40)
[2018-02-07] MEDS: diazePAM 5 MG TABLET PO PRN ×4 (06:56→23:35)
[2018-02-07] MEDS: BACLOFEN 10 MG TABLET (FP) PO SCH ×3 (06:56→22:09)
[2018-02-07] MEDS ORDERED: METHADONE HCL 5 MG TABLET (FOR DETOX USE ONLY) PO ONE (10:00)
[2018-02-07] MEDS: NICOTINE 21 MG/24 HOURS TOPICAL PATCH TD SCH (10:37)
[2018-02-07] MEDS: PRENATAL VITAMINS W/ FOLIC ACID TABLET (FP) PO SCH (10:37)
--- NOTE | 2018-02-07 11:19 | PN ---
S CIWA - CIWA Score Nausea/Vomitin-Mild Nausea/No Vomiting Muscle Tremors: 4-Moderate,w/Arms Extend Anxiety: 3 Agitation: 3 Paroxysmal Sweats: 1-Minimal Palms Moist Orientation: 0-Oriented Tacttile Disturbances: 1-Very Mild Itch/Numbness Auditory Disturbances: 0-None Visual Disturbances: 0-None Headache: 0-None Present CIWA-Ar Total Score: 13 BHS Progress Note (SOAP) Subjective: joint pain body ache tremor sweat trouble sleep at night restlessness Objective: 02/07/18 11:19 Vital Signs Temperature 97.7 F 02/07/18 09:09 Pulse Rate 86 02/07/18 09:09 Respiratory Rate 18 02/07/18 09:09 Blood Pressure 102/58 02/07/18 09:09 O2 Sat by Pulse Oximetry (%) Laboratory Last Values WBC 6.3 K/mm3 (4.0-10.0) 02/06/18 06:00 RBC 4.56 M/mm3 (3.60-5.2) 02/06/18 06:00 Hgb 12.5 GM/dL (10.7-15.3) D 02/06/18 06:00 Hct 37.5 % (32.4-45.2) 02/06/18 06:00 MCV 82.3 fl (80-96) 02/06/18 06:00 MCH 27.4 pg (25.7-33.7) 02/06/18 06:00 MCHC 33.3 g/dl (32.0-36.0) 02/06/18 06:00 RDW 14.2 % (11.6-15.6) D 02/06/18 06:00 Plt Count 263 K/MM3 (134-434) D 02/06/18 06:00 MPV 9.9 fl (7.5-11.1) 02/06/18 06:00 Sodium 139 mmol/L (136-145) 02/06/18 06:00 Potassium 4.1 mmol/L (3.5-5.1) 02/06/18 06:00 Chloride 102 mmol/L (98-107) 02/06/18 06:00 Carbon Dioxide 29 mmol/L (21-32) 02/06/18 06:00 Anion Gap 8 (8-16) 02/06/18 06:00 BUN 13 mg/dL (7-18) 02/06/18 06:00 Creatinine 1.0 mg/dL (0.55-1.02) 02/06/18 06:00 Creat Clearance w eGFR > 60 (>60) 02/06/18 06:00 Random Glucose 94 mg/dL (74-106) 02/06/18 06:00 Calcium 9.2 mg/dL (8.5-10.1) 02/06/18 06:00 Total Bilirubin 0.2 mg/dL (0.2-1.0) D 02/06/18 06:00 AST 15 U/L (15-37) 02/06/18 06:00 ALT 25 U/L (12-78) 02/06/18 06:00 Alkaline Phosphatase 71 U/L (45-117) 02/06/18 06:00 Total Protein 8.0 g/dl (6.4-8.2) 02/06/18 06:00 Albumin 4.5 g/dl (3.4-5.0) 02/06/18 06:00 RPR Titer Nonreactive (NONREACTIVE) 02/06/18 06:00 HIV 1&2 Antibody Screen Negative 02/05/18 15:00 HIV P24 Antigen Negative 02/05/18 15:00 lab noted Assessment: 02/07/18 11:20 withdrawal sx Plan: continue detox
[2018-02-07 17:01] LABS: URINE APPEARANCE CLOUDY; URINE BILIRUBIN NEGATIVE (<2.0 mg/dL); URINE BLOOD NEGATIVE (NEGATIVE); URINE COLOR YELLOW; URINE GLUCOSE (UA) NEGATIVE (NEGATIVE); URINE KETONE NEGATIVE (NEGATIVE); URINE LEUK ESTERASE NEGATIVE (NEGATIVE); URINE NITRITE NEGATIVE (NEGATIVE); URINE PROTEIN NEGATIVE (NEGATIVE); URINE UROBILINOGEN NEGATIVE mg/dL (0.2-1.0)
[2018-02-07] MEDS: QUEtiapine FUMARATE 50 MG TABLET PO SCH (22:09)
[2018-02-07] MEDS: THIAMINE HCL 100 MG TABLET (FP) PO SCH (22:09)
[2018-02-07] MEDS: MELATONIN 5 MG TABLETS PO PRN (22:09)
[2018-02-08] MEDS: BACLOFEN 10 MG TABLET (FP) PO SCH ×3 (07:25→22:07)
[2018-02-08] MEDS ORDERED: METHADONE HCL 5 MG TABLET (FOR DETOX USE ONLY) PO ONE (10:00)
[2018-02-08] MEDS: NICOTINE 21 MG/24 HOURS TOPICAL PATCH TD SCH (10:22)
[2018-02-08] MEDS: PRENATAL VITAMINS W/ FOLIC ACID TABLET (FP) PO SCH (10:22)
[2018-02-08] MEDS: diazePAM 5 MG TABLET PO PRN (10:23)
[2018-02-08] MEDS ORDERED: NICOTINE POLACRILEX 2 MG GUM BUC PRN (11:43)
--- NOTE | 2018-02-08 14:03 | PN ---
S Progress Note (SOAP) Subjective: alert,irritable,anxious,interrupted sleep,tremor Objective: 02/08/18 14:02 Vital Signs Temperature 97.7 F 02/08/18 11:24 Pulse Rate 83 02/08/18 11:24 Respiratory Rate 16 02/08/18 11:24 Blood Pressure 106/54 02/08/18 11:24 O2 Sat by Pulse Oximetry (%) Assessment: 02/08/18 14:02 withdrawal symptom Plan: continue detox,ensure plus 120 mls po bid
[2018-02-08] MEDS: hydrOXYzine PAMOATE 50 MG CAPSULE (FP) PO PRN ×2 (18:17→22:07)
[2018-02-08] MEDS: IBUPROFEN 400 MG TABLET (FP) PO PRN (18:17)
[2018-02-08] MEDS: QUEtiapine FUMARATE 50 MG TABLET PO SCH (22:07)
[2018-02-08] MEDS: THIAMINE HCL 100 MG TABLET (FP) PO SCH (22:07)
[2018-02-08] MEDS: MELATONIN 5 MG TABLETS PO PRN (22:07)
[2018-02-09] MEDS: BACLOFEN 10 MG TABLET (FP) PO SCH ×3 (06:42→23:03)
[2018-02-09] MEDS ORDERED: METHADONE HCL 10 MG TABLET (FOR DETOX USE ONLY) PO ONE (10:00)
[2018-02-09] MEDS: PRENATAL VITAMINS W/ FOLIC ACID TABLET (FP) PO SCH (10:37)
[2018-02-09] MEDS: NICOTINE 21 MG/24 HOURS TOPICAL PATCH TD SCH (10:37)
--- NOTE | 2018-02-09 14:00 | PN ---
S Progress Note (SOAP) Subjective: alert,irritable,interrupted sleep, Objective: 02/09/18 13:59 Vital Signs Temperature 98.4 F 02/09/18 10:48 Pulse Rate 74 02/09/18 10:48 Respiratory Rate 16 02/09/18 10:48 Blood Pressure 103/60 02/09/18 10:48 O2 Sat by Pulse Oximetry (%) Assessment: 02/09/18 14:00 withdrawal symptom Plan: continue detox,discharge in am
[2018-02-09] MEDS: NICOTINE POLACRILEX 4 MG GUM BUC PRN ×2 (16:47→20:25)
[2018-02-09] MEDS: QUEtiapine FUMARATE 50 MG TABLET PO SCH (23:03)
[2018-02-09] MEDS: THIAMINE HCL 100 MG TABLET (FP) PO SCH (23:03)
[2018-02-10] MEDS ORDERED: METHADONE HCL 5 MG TABLET (FOR DETOX USE ONLY) PO ONE ×2 (06:00→10:00)
[2018-02-10] MEDS: BACLOFEN 10 MG TABLET (FP) PO SCH (06:18)
--- NOTE | 2018-02-10 09:27 | DS ---
[facility] Detox Discharge Summary Admission Date: 02/05/18 Discharge Date: 02/10/18 - History Present History: Opioid Dependence Additional Comments: 22 years old female admitted 02/05/18 for opiate withdrawal sx completed opiate detox regimen tolerated well denies opiate withdrawal sx alert oriented x 3 no acute distress aftercare [facility] recovery - Physical Exam Results Vital Signs: Vital Signs Temperature 97.5 F L 02/10/18 07:27 Pulse Rate 71 02/10/18 07:27 Respiratory Rate 18 02/10/18 07:27 Blood Pressure 94/54 02/10/18 07:27 O2 Sat by Pulse Oximetry (%) Pertinent Admission Physical Exam Findings: opiate withdrawal sx Vital Signs Temperature 97.5 F L 02/10/18 07:27 Pulse Rate 71 02/10/18 07:27 Respiratory Rate 18 02/10/18 07:27 Blood Pressure 94/54 02/10/18 07:27 O2 Sat by Pulse Oximetry (%) Laboratory Last Values WBC 6.3 K/mm3 (4.0-10.0) 02/06/18 06:00 RBC 4.56 M/mm3 (3.60-5.2) 02/06/18 06:00 Hgb 12.5 GM/dL (10.7-15.3) D 02/06/18 06:00 Hct 37.5 % (32.4-45.2) 02/06/18 06:00 MCV 82.3 fl (80-96) 02/06/18 06:00 MCH 27.4 pg (25.7-33.7) 02/06/18 06:00 MCHC 33.3 g/dl (32.0-36.0) 02/06/18 06:00 RDW 14.2 % (11.6-15.6) D 02/06/18 06:00 Plt Count 263 K/MM3 (134-434) D 02/06/18 06:00 MPV 9.9 fl (7.5-11.1) 02/06/18 06:00 Sodium 139 mmol/L (136-145) 02/06/18 06:00 Potassium 4.1 mmol/L (3.5-5.1) 02/06/18 06:00 Chloride 102 mmol/L (98-107) 02/06/18 06:00 Carbon Dioxide 29 mmol/L (21-32) 02/06/18 06:00 Anion Gap 8 (8-16) 02/06/18 06:00 BUN 13 mg/dL (7-18) 02/06/18 06:00 Creatinine 1.0 mg/dL (0.55-1.02) 02/06/18 06:00 Creat Clearance w eGFR > 60 (>60) 02/06/18 06:00 Random Glucose 94 mg/dL (74-106) 02/06/18 06:00 Calcium 9.2 mg/dL (8.5-10.1) 02/06/18 06:00 Total Bilirubin 0.2 mg/dL (0.2-1.0) D 02/06/18 06:00 AST 15 U/L (15-37) 02/06/18 06:00 ALT 25 U/L (12-78) 02/06/18 06:00 Alkaline Phosphatase 71 U/L (45-117) 02/06/18 06:00 Total Protein 8.0 g/dl (6.4-8.2) 02/06/18 06:00 Albumin 4.5 g/dl (3.4-5.0) 02/06/18 06:00 Urine Color Yellow 02/07/18 15:15 Urine Appearance Cloudy 02/07/18 15:15 Urine pH 6.0 (5.0-8.0) D 02/07/18 15:15 Ur Specific [place] 1.015 (1.001-1.035) 02/07/18 15:15 Urine Protein Negative (NEGATIVE) 02/07/18 15:15 Urine Glucose (UA) Negative (NEGATIVE) 02/07/18 15:15 Urine Ketones Negative (NEGATIVE) 02/07/18 15:15 Urine Blood Negative (NEGATIVE) 02/07/18 15:15 Urine Nitrite Negative (NEGATIVE) 02/07/18 15:15 Urine Bilirubin Negative (<2.0 mg/dL) 02/07/18 15:15 Urine Urobilinogen Negative mg/dL (0.2-1.0) 02/07/18 15:15 Ur Leukocyte Esterase Negative (NEGATIVE) 02/07/18 15:15 RPR Titer Nonreactive (NONREACTIVE) 02/06/18 06:00 HIV 1&2 Antibody Screen Negative 02/05/18 15:00 HIV P24 Antigen Negative 02/05/18 15:00 lab noted - Treatment Hospital Course: Detox Protocol Followed, Detoxed Safely, Responded well, Discharged Condition Good, Rehab Referral Accepted Patient has Accept[facility] - Medication Discharge Medications: Ambulatory Orders Quetiapine Fumarate [Seroquel -] 50 mg PO HS #30 tablet 02/06/18 - Diagnosis (1) Nicotine dependence Current Visit: Yes Status: Acute Qualifiers: Nicotine product type: cigarettes Substance use status: in withdrawal Qualified Code(s): F17.213 - Nicotine dependence, cigarettes, with withdrawal (2) Opioid dependence with withdrawal Current Visit: Yes Status: Acute - AMA Did Patient Leave Against Medical Advice: No
[2018-02-10] MEDS: PRENATAL VITAMINS W/ FOLIC ACID TABLET (FP) PO SCH (09:30)
[2018-02-10] MEDS: NICOTINE 21 MG/24 HOURS TOPICAL PATCH TD SCH (09:30)
[2018-02-10] MEDS ORDERED: METHADONE HCL 10 MG TABLET (FOR DETOX USE ONLY) PO ONE (09:38)
[2018-02-10 11:03] VITALS: BP 106/57; PULSE 90; TEMP 98.8
== END 2018-02-10 10:15 | disposition home or self-care (01) | DRG 773 ==
LOC: YASAS 11:28 → Y6N 14:20
PROVIDERS: ADMIT Surgery; ATTEND Surgery
PROC: HZ2ZZZZ Detoxification Services for Substance Abuse Treatment (ICD-10-PCS; principal; 2018-02-05)
DX: F11.23 Opioid dependence with withdrawal (principal); F11.282 Opioid dependence with opioid-induced sleep disorder; F17.210 Nicotine dependence, cigarettes, uncomplicated; F41.8 Other specified anxiety disorders; Z88.1 Allergy status to other antibiotic agents
CPT/HCPCS: 36415; 80053; 81003; 85027; 86593; 87389; 93005; 93010; J0475